=== PATIENT | male | born 1985 | race American Indian/Alaskan Native ===

== ENCOUNTER 2017-09-03 17:57 | Emergency (ER) | payer BC ==
[2017-09-03 18:17] VITALS: BP 137/69
== END 2017-09-03 21:30 | disposition left against medical advice (07) ==
LOC: ED 17:57
DX: Z11.3 Encounter for screening for infections with a predominantly sexual mode of transmission (principal); Z53.21 Procedure and treatment not carried out due to patient leaving prior to being seen by health care provider